=== PATIENT | male | born 1970 | race Caucasian/White ===

== ENCOUNTER 2016-12-06 22:54 | Emergency (ER) | payer OTHER ==
[2016-12-06 23:10] VITALS: BP 116/72; PULSE 87; RESP 16; TEMP 98; O2SAT 98
--- NOTE | 2016-12-07 00:20 | C.PDOC ---
History Of Present Illness 46 yo male s/p hemorrhoidectomy 4 days ago, come in for re-evaluation of rectal pain with scant bleeding developed gradually developed for past few days at [facility] ([facility]), ambulatory surgery.Pt admits, " was fine right after the surgery". Pt reports, takes pain medication percocet with good relive in pain, athough concern about the bleeding now.Otherwise, pt denies fever, chills, abd. pain, vomiting, change in stool, constipation or difficulty in BM. Ambulate to Ed for evaluation not in any apparent distress. Time Seen by Provider: 12/06/16 23:25 Chief Complaint (Nursing): GI Problem History Per: Patient Past Medical History Reviewed: Historical Data, Nursing Documentation, Vital Signs Vital Signs: Last Vital Signs Temp 98.0 F 12/06/16 23:06 Pulse 87 12/06/16 23:06 Resp 16 12/06/16 23:06 BP 116/72 12/06/16 23:06 Pulse Ox 98 12/07/16 00:26 - Medical History PMH: No Chronic Diseases Other Surgeries: recent hemorrhoidectomy Family History: States: No Known Family Hx - Social History Hx Alcohol Use: No Hx Substance Use: No - Immunization History Hx Tetanus Toxoid Vaccination: No Hx Influenza Vaccination: No Hx Pneumococcal Vaccination: No Review Of Systems Except As Marked, All Systems Reviewed And Found Negative. Constitutional: Negative for: Fever, Chills ENT: Negative for: Throat Pain Gastrointestinal: Positive for: Rectal Pain. Negative for: Nausea, Vomiting, Abdominal Pain, Diarrhea, Constipation, Melena, Hematochezia, Hematemesis Musculoskeletal: Negative for: Back Pain Skin: Negative for: Rash Neurological: Negative for: Weakness, Numbness, Altered Mental Status, Headache , Dizziness Physical Exam - Physical Exam Appears: Well, Non-toxic, No Acute Distress Skin: Normal Color, Warm Gastrointestinal/Abdominal: Soft, No Tenderness, No Distention, No Guarding, No Rebound Rectal: Rectal Tone (normal), Hemorrhoids (small non-thrombosed tender external hemorrhoid with scant bleeding. No edema, no erythema, no flactulance.) Extremity: No Pedal Edema, No Deformity Neurological/Psych: Oriented x3, Normal Speech ED Course And Treatment O2 Sat by Pulse Oximetry: 98 Pulse Ox Interpretation: Normal Progress Note: On re-eavuation, pt is afebrile, hemodynamicaly stable. non- toxic. Abd: benign. Rectal exam: no acute finidngs, no acute bleeidng, abscess , flactulance or any other acute changes. Pt advised. ref. to f/u with surgery in 1-2 days for re-eval. return if any new changes. Disposition Counseled Patient/Family Regarding: Diagnosis, Need For Followup, Rx Given - Disposition Referrals: Christa Burns MD [Medical Doctor] - Disposition: HOME/ ROUTINE Disposition Time: 00:01 Condition: STABLE Additional Instructions: Warm sitz baths daily Take pain medication as prescribed Follow up with Surgeon in 1-2 days for re-evaluation. Return to ED if any worsening or new changes. Prescriptions: Hydrocodone/Acetaminophen [Acetaminophen-Hydrocodone Bitartrate 325 mg-5] 1 tab PO BID #6 tab Instructions: Hemorrhoids (ED) - Clinical Impression Clinical Impression: Hemorrhoids
== END 2016-12-07 00:31 | disposition home or self-care (01) ==
LOC: C.ER 22:54
DX: K64.4 Residual hemorrhoidal skin tags (principal)

== ENCOUNTER 2017-04-02 02:13 | Emergency (ER) | payer OTHER ==
[2017-04-02 02:21] VITALS: BP 112/77; PULSE 66; RESP 20; TEMP 97.7; O2SAT 99
--- NOTE | 2017-04-02 03:31 | C.PDOC ---
History Of Present Illness The patient reports that he got a cotton swab tip stuck in the right ear 1 hour [employer]. The patient denies pain or drainage. Time Seen by Provider: 04/02/17 02:46 Chief Complaint (Nursing): ENT Problem History Per: Patient History/Exam Limitations: None Severity: None Pain Scale Rating Of: 0 Past Medical History Reviewed: Historical Data, Nursing Documentation, Vital Signs Vital Signs: Last Vital Signs Temp 97.7 F 04/02/17 02:18 Pulse 66 04/02/17 02:18 Resp 20 04/02/17 02:18 BP 112/77 04/02/17 02:18 Pulse Ox 99 04/02/17 02:18 - Medical History PMH: No Chronic Diseases Family History: States: No Known Family Hx - Social History Hx Alcohol Use: No Hx Substance Use: No - Immunization History Hx Tetanus Toxoid Vaccination: No Hx Influenza Vaccination: No Hx Pneumococcal Vaccination: No Review Of Systems Constitutional: Negative for: Fever, Chills Eyes: Negative for: Pain ENT: Positive for: Other (foreign body sensation of right ear). Negative for: Ear Pain Skin: Negative for: Rash Neurological: Negative for: Weakness, Numbness Physical Exam - Physical Exam Appears: Well, No Acute Distress Skin: Normal Color, Warm Head: Atraumatic, Normacephalic Eye(s): bilateral: Normal Inspection Ear(s): Left: Normal, Right: Other (white cotton q-tip in ear. TM appears normal ) Nose: Normal Oral Mucosa: Moist Neck: Normal ROM, Supple Neurological/Psych: Oriented x3, Normal Speech, Normal Motor, Normal Sensation Gait: Steady ED Course And Treatment O2 Sat by Pulse Oximetry: 99 (on RA) Pulse Ox Interpretation: Normal Disposition - Disposition Referrals: Hector Agustin MD [Staff Provider] - Disposition: HOME/ ROUTINE Disposition Time: 03:29 Condition: GOOD Additional Instructions: return if worsened. Instructions: Ear Foreign Body (ED) Forms: [facility] ([place]ian) - Clinical Impression Clinical Impression: Ear foreign body Procedures - FB Removal Ear Right Foreign Body Location: Ear Canal Right Foreign Body Suspected: Other (cotton q-tip) TM Intact Pre-Procedure: Yes Foreign Body Removed: Yes Foreign Body Removal Technique: Forceps (alligator forceps) TM Intact Post Procedure: Yes Patient Tolorated Procedure: Well Complications: None (No pain. TM is intact)
== END 2017-04-02 03:40 | disposition home or self-care (01) ==
LOC: C.ER 02:13
DX: T16.1XXA Foreign body in right ear, initial encounter (principal); X58.XXXA Exposure to other specified factors, initial encounter